=== PATIENT | female | born 1990 | race Caucasian/White ===

== ENCOUNTER 2018-11-15 12:37 | Emergency (ER) | payer MEDICAID ==
[~2018-11-15] VITALS: Ht 154.9 cm; Wt 81.8 kg
[2018-11-15 12:45] VITALS: BP 133/69; PULSE 114; RESP 18; Ht 154.9 cm; Wt 81.8 kg
[2018-11-15] MEDS ORDERED: KETOROLAC 60 MG INJ IM STA (14:12)
[2018-11-15] MEDS ORDERED: ACETAMINOPHEN 500 MG TAB PO STA (14:12)
[2018-11-15] MEDS ORDERED: DEXAMETHASONE 10 MG/ML 1 ML INJ IM ONE (14:30)
[2018-11-15] MEDS ORDERED: METR70GE15 VAG (16:24)
[2018-11-15] MEDS ORDERED: AMOX1TAB10 PO (16:24)
[2018-11-15] MEDS ORDERED: FLUC150T PO (16:24)
--- NOTE | 2018-11-15 20:46 | ERD ---
ER Documentation Chief Complaint Chief Complaint PT HAS ST AND AP X 1 WEEK 01/05 HPI History of Present Illness: 28-year-old female with no past medical history coming in today with complaint of sore throat and pelvic pain that is been present for 1 week. Patient reports similar symptoms sore throat symptoms approximately 1 month ago 1 day after having oral sex with a new partner; she noticed white patches back of her throat as well as throat pain. During this episode. Patient reports seeking medical attention and she was given a penicillin shot and amoxicillin for 2 weeks. Patient reports having sex with a different partner approximately 2 weeks ago. Patient reports getting same throat infection-like symptoms again. . Patient reports having a yellow fishy odorous discharge has been present for 1 year, but has been more present in the past week. Patient with mild burning during urination. At home pharmacological/nonpharmacological treatment for symptoms: Denies Denies social concerns; Denies recent foreign travel ROS All systems reviewed and are negative except as per history of present illness. Medications Home Meds Active Scripts Amoxicillin/Potassium Clav (Amox-Clav 875-125 mg Tablet) 875-125 mg Tab, 1 TAB PO BID for THROAT INFECTION for 10 Days, #20 TAB Prov:DAYNE BAH NP 11/15/18 Fluconazole* (Diflucan*) 150 Mg Tablet, 150 MG PO ONCE, #1 TAB Prov:DAYNE BAH NP 11/15/18 Metronidazole* (Metrogel* Vaginal) 0.75% -70 Gram Gel.w.appl, 1 APPFUL VAG BID for VAGINAL INFECTION for 7 Days, TUB Prov:DAYNE BAH NP 11/15/18 Allergies Allergies: Coded Allergies: No Known Allergies (Verified Allergy, Unknown, 11/15/18) PMhx/Soc History of Surgery: No Anesthesia Reaction: No Hx Neurological Disorder: No Hx Respiratory Disorders: No Hx Cardiac Disorders: No Hx Psychiatric Problems: No Hx Miscellaneous Medical Probl: No Hx Alcohol Use: No Hx Substance Use: No Hx Tobacco Use: No Smoking Status: Never smoker FmHx Family History: No diabetes, No coronary disease Physical Exam Vitals Vital Signs Date Temp Pulse Resp B/P (MAP) Pulse Ox O2 O2 Flow FiO2 Time Delivery Rate 11/15/18 98.4 114 18 133/69 100 12:45 (90) Physical Exam GENERAL: The patient is well-appearing, well-nourished, in no acute distress HEENT: Atraumatic. Conjunctivae are pink. Pupils equal, round, and reactive to light. There is no scleral icterus. No erythema to tympanic membranes, no bulging, no perforation. Erythematous oropharynx with tonsillar exudate, 3+ tonsils . NECK: Full range of motion. C-spine is soft and supple. There is no meningismus. There is no cervical lymphadenopathy. CHEST: Clear to auscultation bilaterally. There are no rales, wheezes or rhonchi. HEART: Regular rate and rhythm. No murmurs, clicks, rubs or gallops. ABDOMEN: Soft, non tender, non distended. Normal bowel sounds EXTREMITIES: No cyanosis, or edema NEURO: Awake and alert, appropriate for age, no irritable cry Vaginal exam deferred, patient refused. So swab collected for wet mount. Patient denies lesions. Results 24 hrs Laboratory Tests Test 11/15/18 14:35 11/15/18 14:41 Urine Color YELLOW Urine Clarity CLEAR Urine pH 6.0 Urine Specific [place] 1.012 Urine Ketones NEGATIVE mg/dL Urine Nitrite NEGATIVE mg/dL Urine Bilirubin NEGATIVE mg/dL Urine Urobilinogen NEGATIVE mg/dL Urine Leukocyte Esterase NEGATIVE Hussain/ul Urine Hemoglobin NEGATIVE mg/dL Urine Glucose NEGATIVE mg/dL Urine Total Protein NEGATIVE mg/dl POC Beta HCG, Qualitative NEGATIVE Current Medications Medications Dose Sig/Tu Start Time Status Last (Trade) Ordered Route PRN Stop Time Admin Dose Reason Admin 10 mg ONCE ONCE 11/15/18 DC 11/15/18 Dexamethasone IM 14:30 14:50 (Decadron) 11/15/18 14:31 Ketorolac 60 mg ONCE STAT 11/15/18 DC 11/15/18 Tromethamine IM 14:12 14:50 (Toradol) 11/15/18 14:17 1,000 mg ONCE STAT 11/15/18 DC 11/15/18 Acetaminophen PO 14:12 14:50 (Tylenol 11/15/18 14:17 Tab) Procedures/MDM ED course includes a thorough examination and history. Medications: Dexamethasone, ketorolac, acetaminophen Imaging: -- Labs: urinalysis, urine , urogenital wet mount, gonorrhea, chlamydia Low suspicion for life-threatening medical emergency. Otherwise healthy patient presenting with constellation of symptoms likely representing bacterial vaginosis/acute pharyngitis as characterized by history, physical exam findings, lab findings. Rapid strep negative. Throat culture ordered. Wet mount showing red blood cells, white blood cells, positive clue cells. Negative trichomonas. Gonorrhea chlamydia pending, patient wants to wait on results, no desire for prophylactic treatment. Urinalysis negative for infection. No respiratory distress, otherwise relatively well appearing and nontoxic. Patient with decreased pain and pharyngeal erythema after medication ministration. Education on no sex until it is complete and reassessment of vaginal infection. Disposition given. Patient educated on diagnoses, prescriptions, follow-up care, return precautions. Strict return precautions given for worsening condition; questions answered discharge. Disposition for discharge with followup in 2 days with PCP/clinic. Departure Diagnosis: Primary Impression: Bacterial vaginosis Additional Impression: Pharyngitis, acute Pharyngitis/tonsillitis etiology: unspecified etiology Qualified Codes: J02.9 - Acute pharyngitis, unspecified Condition: Stable Patient Instructions: Vaginal Infection: Bacterial Vaginosis, Pharyngitis, Strep (Presumed) Referrals: [facility] YOU HAVE RECEIVED A MEDICAL SCREENING EXAM AND THE RESULTS INDICATE THAT YOU DO NOT HAVE A CONDITION THAT REQUIRES URGENT TREATMENT IN THE EMERGENCY DEPARTMENT. FURTHER EVALUATION AND TREATMENT OF YOUR CONDITION CAN WAIT UNTIL YOU ARE SEEN IN YOUR DOCTORS OFFICE WITHIN THE NEXT 1-2 DAYS. IT IS YOUR RESPONSIBILITY TO MAKE AN APPOINTMENT FOR FOLOW-UP CARE. IF YOU HAVE A PRIMARY DOCTOR --you should call your primary doctor and schedule an appointment IF YOU DO NOT HAVE A PRIMARY DOCTOR YOU CAN CALL OUR PHYSICIAN REFERRAL HOTLINE AT IF YOU CAN NOT AFFORD TO SEE A PHYSICIAN YOU CAN CHOSE FROM THE FOLLOWING [facility] [address] [facility] [address] [facility] [address] [facility] [address] [facility] [address] [facility]. [facility]. [address] [facility] YOU HAVE RECEIVED A MEDICAL SCREENING EXAM AND THE RESULTS INDICATE THAT YOU DO NOT HAVE A CONDITION THAT REQUIRES URGENT TREATMENT IN THE EMERGENCY DEPARTMENT. FURTHER EVALUATION AND TREATMENT OF YOUR CONDITION CAN WAIT UNTIL YOU ARE SEEN IN YOUR DOCTORS OFFICE WITHIN THE NEXT 1-2 DAYS. IT IS YOUR RESPONSIBILITY TO MAKE AN APPOINTMENT FOR FOLOW-UP CARE. IF YOU HAVE A PRIMARY DOCTOR --you should call your primary doctor and schedule and appointment IF YOU DO NOT HAVE A PRIMARY DOCTOR YOU CAN CALL OUR PHYSICIAN REFERRAL HOTLINE AT . IF YOU CAN NOT AFFORD TO SEE A PHYSICIAN YOU CAN CHOSE FROM THE FOLLOWING [facility] INSTITUTIONS: [facility] [address] [place] [address] [facility] [address] [place] [address] [facility] [address] [place] [address] Additional Instructions: Thank you very much for allowing us to participate in your care. Your health and safety is our top priority at [facility]. It is important to read all discharge instructions and education provided in your discharge packet. *For syphilis, HIV, hepatitis testing you will need to see her primary care doctor or clinic or health department. Your gonorrhea chlamydia results test is pending, if it is positive we will contact you by next Saturday. No sexual activity until antibiotic course is complete. No drinking alcohol while taking antibiotics.* *Your rapid strep test which test for pharyngitis is negative. We will treat prophylactically in the event that this Streptococcus pharyngitis throat culture is positive.* Call your primary care doctor TOMORROW for an appointment during the next 2-4 days and bring all the information and medications prescribed. Have prescriptions filled and follow precisely the directions on the label. -Metronidazole Is an antibiotic; take this medication every day every 12 hours as listed on your prescription. You must complete the entire course of treatment that is listed on your prescription this is very important because it takes a certain number of days to kill the bacteria that is causing the infection. -Fluconazole as a antifungal. This is a medication to prevent yeast infection. You have a high chance of developing a yeast infection after taking the medication for a bacterial vaginal infection. -Augmentin is an antibiotic; take this medication every day every 12 hours as listed on your prescription. You must complete the entire course of treatment that is listed on your prescription this is very important because it takes a certain number of days to kill the bacteria that is causing the infection. If the symptoms get worse and your provider is unavailable, return to the Emergency Department immediately. DAYNE BAH NP Nov 15, 2018 20:46
== END 2018-11-15 16:46 | disposition home or self-care (01) ==
LOC: FTE 12:37
DX: N76.0 Acute vaginitis (principal); R10.2 Pelvic and perineal pain
CPT/HCPCS: 81003; 81025; 87070; 87210; 87430; 87591; 87880; 96372; J1100; J1885; Z7502; Z7610

== ENCOUNTER 2018-11-18 20:12 | Emergency (ER) | payer MEDICAID ==
[~2018-11-18] VITALS: Ht 154.9 cm; Wt 84.1 kg
[~2018-11-18 20:12] MED LIST: AMOX1TAB10 PO; FLUC150T PO; METR70GE15 VAG
[2018-11-18 20:22] VITALS: Ht 154.9 cm; Wt 84.1 kg
[2018-11-18] MEDS ORDERED: KETOROLAC 30 MG INJ IM STA (20:41)
[2018-11-18] MEDS ORDERED: ONDANSETRON (ODT) 4 MG TAB ODT STA (20:41)
--- NOTE | 2018-11-18 20:48 | ERD ---
ER Documentation Chief Complaint Chief Complaint gallstone pain x6mo worse today; pending surgery. ran out of motrin. HPI Patient is a 28-year-old female with past medical history of gallstones, presents to the ER for concerns of right upper quadrant pain times 2 days. She states she has had intermittent pain for the last 6 months or today the pain has become significant worse. Patient states she is vomited twice. She denies any fevers. Patient states that she has seen her primary care physician for her gallstones and was told she needs to have her gallbladder removed however the referral is still pending for her to see a general surgeon. Patient denies any chest pain, shortness of breath, diarrhea or LOC. Patient states her symptoms got worse after she ate tacos. ROS All systems reviewed and are negative except as per history of present illness. Medications Home Meds Active Scripts Ondansetron (Ondansetron Odt) 4 Mg Tab.rapdis, 4 MG PO Q6H PRN for NAUSEA AND/OR VOMITING, #10 TAB Prov:PAIGE BROOKE-[place] 11/18/18 Ibuprofen* (Motrin*) 600 Mg Tab, 600 MG PO Q6, #30 TAB Prov:PAIGE BROOKE-C 11/18/18 Amoxicillin/Potassium Clav (Amox-Clav 875-125 mg Tablet) 875-125 mg Tab, 1 TAB PO BID for THROAT INFECTION for 10 Days, #20 TAB Prov:DAYNE BAH V COUTURIERE 11/15/18 Fluconazole* (Diflucan*) 150 Mg Tablet, 150 MG PO ONCE, #1 TAB Prov:DAYNE BAH NP 11/15/18 Metronidazole* (Metrogel* Vaginal) 0.75% -70 Gram Gel.w.appl, 1 APPFUL VAG BID for VAGINAL INFECTION for 7 Days, TUB Prov:DAYNE BAH V COUTURIERE 11/15/18 Allergies Allergies: Coded Allergies: No Known Allergies (Verified Allergy, Unknown, 11/15/18) PMhx/Soc History of Surgery: No Anesthesia Reaction: No Hx Neurological Disorder: No Hx Respiratory Disorders: No Hx Cardiac Disorders: No Hx Psychiatric Problems: No Hx Miscellaneous Medical Probl: No Hx Alcohol Use: No Hx Substance Use: No Hx Tobacco Use: No FmHx Family History: No diabetes Physical Exam Vitals Vital Signs Date Temp Pulse Resp B/P (MAP) Pulse Ox O2 O2 Flow FiO2 Time Delivery Rate 11/18/18 99.0 87 22 147/86 99 20:22 (106) Physical Exam GENERAL: Well-developed, well-nourished female. Appears in no acute distress. Speaking in full sentences. HEAD: Normocephalic, atraumatic. EYES: Pupils are equally reactive bilaterally. EOMs grossly intact. No conjunctival erythema. ENT: Moist mucous membranes. No uvula deviation. No kissing tonsils. NECK: Supple. No meningismus. Normal range of motion of the neck. LUNG: Clear to auscultation bilaterally. No rhonchi, wheezing, rales or coarse breath sounds. HEART: Regular rate and rhythm. No murmurs, rubs or gallops. ABDOMEN: Soft nondistended. Tender to palpation in the right upper quadrant. Positive bowel sounds in all four quadrants. No rebound tenderness, no guarding. (-) McBurney's point tenderness. No CVA tenderness. EXTREMITIES: Equal pulses bilaterally. No peripheral clubbing, cyanosis or edema. No unilateral leg swelling. NEUROLOGIC: Alert and oriented. Moving all four extremities without any dif ficulty. Normal speech. Steady gait. SKIN: Normal color. Warm and dry. No rashes or lesions. Result Diagram: 11/18/18210911/18/182109 Results 24 hrs Laboratory Tests Test 11/18/18 21:10 11/18/18 21:15 White Blood Count 8.9 10^3/ul Red Blood Count 4.59 10^6/ul Hemoglobin 13.1 g/dl Hematocrit 40.6 % Mean Corpuscular Volume 88.5 fl Mean Corpuscular Hemoglobin 28.5 pg Mean Corpuscular Hemoglobin Concent 32.3 g/dl Red Cell Distribution Width 12.9 % Platelet Count 333 10^3/UL Mean Platelet Volume 10.0 fl Immature Granulocytes % 0.400 % Neutrophils % 57.9 % Lymphocytes % 34.7 % Monocytes % 5.8 % Eosinophils % 0.6 % Basophils % 0.6 % Nucleated Red Blood Cells % 0.0 /100WBC Immature Granulocytes # 0.040 10^3/ul Neutrophils # 5.2 10^3/ul Lymphocytes # 3.1 10^3/ul Monocytes # 0.5 10^3/ul Eosinophils # 0.1 10^3/ul Basophils # 0.1 10^3/ul Nucleated Red Blood Cells # 0.0 10^3/ul Urine Color YELLOW Urine Clarity SLIGHTLY CLOUDY Urine pH 5.0 Urine Specific [place] 1.025 Urine Ketones NEGATIVE mg/dL Urine Nitrite NEGATIVE mg/dL Urine Bilirubin NEGATIVE mg/dL Urine Urobilinogen NEGATIVE mg/dL Urine Leukocyte Esterase NEGATIVE Hussain/ul Urine Microscopic RBC 2 /HPF Urine Microscopic WBC 0 /HPF Urine Hemoglobin NEGATIVE mg/dL Urine Glucose NEGATIVE mg/dL Urine Total Protein NEGATIVE mg/dl Sodium Level 142 mmol/L Potassium Level 3.7 mmol/L Chloride Level 104 mmol/L Carbon Dioxide Level 31 mmol/L Anion Gap 7 Blood Urea Nitrogen 10 mg/dl Creatinine 0.81 mg/dl Est Glomerular Filtrat Rate mL/min > 60 mL/min Glucose Level 79 mg/dl Calcium Level 8.9 mg/dl Total Bilirubin 0.2 mg/dl Direct Bilirubin 0.00 mg/dl Indirect Bilirubin 0.2 mg/dl Aspartate Amino Transf (AST/SGOT) 18 IU/L Alanine Aminotransferase (ALT/SGPT) 22 IU/L Alkaline Phosphatase 81 IU/L Total Protein 7.2 g/dl Albumin 3.9 g/dl Globulin 3.30 g/dl Albumin/Globulin Ratio 1.18 Lipase 155 U/L POC Beta HCG, Qualitative NEGATIVE Current Medications Medications Dose Sig/Tu Start Time Status Last (Trade) Ordered Route PRN Stop Time Admin Dose Reason Admin Ketorolac 30 mg ONCE STAT 11/18/18 DC 11/18/18 Tromethamine IM 20:41 21:23 (Toradol) 11/18/18 20:43 Ondansetron 4 mg ONCE STAT 11/18/18 DC 11/18/18 HCl (Zofran ODT 20:41 20:55 Odt) 11/18/18 20:43 Procedures/MDM ED COURSE: The patient was stable throughout ED course. I kept the patient and/or family informed of laboratory and diagnostic imaging results throughout the ED course. DIAGNOSTIC IMAGING: Read by radiologist. DIAGNOSTIC IMAGING REPORT Patient: FANNY LONGORIA : 1990 Age: 28 Sex: F MR #: [id number] DOS: 11/18/182040 Ordering MD: PAIGE BROOKE PA-C Location: [facility] Room/Bed: PROCEDURE: US Abdomen. CLINICAL INDICATION: abdominal pain TECHNIQUE: Multiple real-time images were acquired of the patient's right upper quadrant abdomen and retroperitoneum utilizing a high resolution transducer. COMPARISON: None FINDINGS: The liver demonstrates normal echogenicity. The liver is normal in size and no focal solid lesions are seen. The liver measures 15.8 cm in length. The portal vein is patent with normal direction of flow. No intrahepatic biliary dilatation is seen. Multiple gallstones are identified within the gallbladder. There is no pericholecystic fluid or gallbladder wall thickening. The common bile duct measures 3 mm in maximal dimension. The visualized portions of the pancreas are unremarkable. The tail of the pancreas is not seen. No free fluid is identified. The right kidney is normal in size, and demonstrate normal echogenicity and cortical thickness. The right kidney measures 13.1 cm in long dimension. There is no evidence of hydronephrosis. There are no kidney stones. RPTAT: AA IMPRESSION: Cholelithiasis. .Edgardo Payne MD, MD Date Time Electronically viewed and signed by .Edgardo Payne MD, MD on 11/18/2018 21:07 .S/ CC: PAIGE BROOKE PA-C [id number] PROCEDURES: None. MEDICATIONS GIVEN: Toradol, Zofran Patient tolerated medication well with no adverse reactions. Patient reported improvement in pain. MEDICAL DECISION MAKING: This is a 28-year-old female who presents the ER for concerns of right upper quadrant pain times 2 days. Patient has a history of gallstones. CBC showed no evidence of systemic infection or severe anemia. CMP showed no evidence of electrolyte abnormalities, severe acidosis, alkalosis, renal failure, or liver disease. Lipase showed no evidence of acute pancreatitis. UA showed no evidence of acute infection or hematuria. Urine test was negative. Gallbladder ultrasound did show concerns for cholelithiasis. Patient is aware that she does have cholelithiasis and states she has a referral pending to see a general surgeon. Patient is encouraged to follow-up with her primary care physician to see if her referral has become approved. At this time, patient's presentation was consistent with cholelithiasis. Differential diagnosis included was not limited to acute coronary syndrome, AAA, mesenteric ischemia, lower lobe pneumonia, DKA, bowel perforation, cholecystitis, choledocholithiasis, ascending cholangitis, hepatic abscess, pancreatitis, PUD, gastritis, GERD, splenic rupture, diverticulitis, UTI, pyelo nephritis, nephrolithiasis, appendicitis, constipation, , ectopic , PID, ovarian torsion or tubo-ovarian abscess. PRESCRIPTIONS: Ibuprofen, Zofran DISCHARGE: At this time, patient is stable for discharge and outpatient management. I have instructed the patient to follow-up with his/her primary care physician in 1-2 days. I have instructed the patient to promptly return to the ER at any time for any new or worsening symptoms including increased pain, nausea, vomiting, diarrh ea, fever, weakness or LOC. The patient and/or family expressed understanding of and agreement with this plan. All questions were answered. Home care instructions were provided. Disclaimer: Inadvertent spelling and grammatical errors are likely due to EHR/dictation software use and do not reflect on the overall quality of patient care. Also, please note that the electronic time recorded on this note does not necessarily reflect the actual time of the patient encounter. Departure Diagnosis: Primary Impression: Gallstones Condition: Fair Patient Instructions: Biliary Colic With Gallstone (Presumed) Referrals: [facility] YOU HAVE RECEIVED A MEDICAL SCREENING EXAM AND THE RESULTS INDICATE THAT YOU DO NOT HAVE A CONDITION THAT REQUIRES URGENT TREATMENT IN THE EMERGENCY DEPARTMENT. FURTHER EVALUATION AND TREATMENT OF YOUR CONDITION CAN WAIT UNTIL YOU ARE SEEN IN YOUR DOCTORS OFFICE WITHIN THE NEXT 1-2 DAYS. IT IS YOUR RESPONSIBILITY TO MAKE AN APPOINTMENT FOR FOLOW-UP CARE. IF YOU HAVE A PRIMARY DOCTOR --you should call your primary doctor and schedule an appointment IF YOU DO NOT HAVE A PRIMARY DOCTOR YOU CAN CALL OUR PHYSICIAN REFERRAL HOTLINE AT IF YOU CAN NOT AFFORD TO SEE A PHYSICIAN YOU CAN CHOSE FROM THE FOLLOWING [facility] [address] [facility] [address] [facility] [address] [facility] [address] [facility] [address] [facility]. [facility]. [address] [facility]. [facility] YOU HAVE RECEIVED A MEDICAL SCREENING EXAM AND THE RESULTS INDICATE THAT YOU DO NOT HAVE A CONDITION THAT REQUIRES URGENT TREATMENT IN THE EMERGENCY DEPARTMENT. FURTHER EVALUATION AND TREATMENT OF YOUR CONDITION CAN WAIT UNTIL YOU ARE SEEN IN YOUR DOCTORS OFFICE WITHIN THE NEXT 1-2 DAYS. IT IS YOUR RESPONSIBILITY TO MAKE AN APPOINTMENT FOR FOLOW-UP CARE. IF YOU HAVE A PRIMARY DOCTOR --you should call your primary doctor and schedule and appointment IF YOU DO NOT HAVE A PRIMARY DOCTOR YOU CAN CALL OUR PHYSICIAN REFERRAL HOTLINE AT . IF YOU CAN NOT AFFORD TO SEE A PHYSICIAN YOU CAN CHOSE FROM THE FOLLOWING [facility] INSTITUTIONS: [facility] [address] [place] [address] [facility] [address] [place] [address] [facility] [address] [place] [address] Additional Instructions: Follow-up with your primary care physician to see if your general surgery referral is approved. Call your primary care doctor TOMORROW for an appointment during the next 1-2 days.See the doctor sooner or return here if your condition worsens before your appointment time. PAIGE BROOKE PA-C Nov 18, 2018 20:48
[2018-11-18] MEDS ORDERED: IBUP-1542 PO (22:25)
[2018-11-18] MEDS ORDERED: ONDA4TAB14 PO (22:25)
[2018-11-18 22:35] VITALS: BP 120/89; PULSE 65; RESP 18
== END 2018-11-18 22:45 | disposition home or self-care (01) ==
LOC: FTE 20:12
DX: K80.20 Calculus of gallbladder without cholecystitis without obstruction (principal); Z76.0 Encounter for issue of repeat prescription
CPT/HCPCS: 36415; 76705; 80053; 81001; 81025; 83690; 85025; 96372; J1885; Z7502; Z7610; 81003